=== PATIENT | male | born 1975 | race Caucasian/White ===

== ENCOUNTER 2021-10-19 13:47 | Outpatient (CLI) | payer BC, SELFPAY ==
[2021-10-19 16:42] LABS: Anion Gap 9 mmol/L (8-16); Blood Urea Nitrogen 16 mg/dL (9-20); Calcium 9.5 mg/dL (8.4-10.2); Carbon Dioxide 26 mmol/L (22-30); Chloride 101 mmol/L (98-107); Estimated Glomerular Filt Rate > 60; Glucose 121 mg/dL (65-110); HDL Direct 33 mg/dL; Potassium 4.4 mmol/L (3.4-5.0); Sodium 136 mmol/L (137-145)
[2021-10-19 16:53] LABS: LDL Cholesterol Direct 83 mg/dL
[2021-10-23 08:15] LABS: C-Peptide <0.10 ng/mL (0.80-3.85)
== END 2021-10-19 13:48 | disposition home or self-care (01) ==
LOC: ANHWCLAB 13:51
PROVIDERS: Referring Provider Internal Medicine Endocrinology, Diabetes & Metabolism; Visit Provider Internal Medicine Endocrinology, Diabetes & Metabolism
DX: E10.65 Type 1 diabetes mellitus with hyperglycemia (principal); E78.00 Pure hypercholesterolemia, unspecified
CPT/HCPCS: 36415; 80048; 82607; 83718; 83721; 84443; 84681